=== PATIENT | female | born 1995 | race Caucasian/White ===

== ENCOUNTER → 2021-11-02 | Outpatient (CLI) | payer BC ==
--- NOTE | 2021-11-02 13:31 | RAD ---
EXAM: ULTRASOUND ABDOMEN COMPLETE CLINICAL HISTORY: Abnormal liver function tests COMPARISON: None available. TECHNIQUE: Ultrasound of the upper abdomen was performed. FINDINGS: The pancreas is not well-visualized due to bowel gas. The visualized aorta, IVC within normal limits of dimension. Moderate increased echogenicity in the liver likely hepatic steatosis. Liver length arian sures 16.8 cm. Mild echogenicities identified within the gallbladder likely sludge or gallstones.. Th e common bile duct measures 5.7 mm in transverse dimension. The right kidney measures 10.7 x 5.1 x 4. 5 cm. The left kidney measures 11.6 x 5.3 x 6.7 cm. The spleen measures 9.5 cm in length. IMPRESSION: 1. Echogenicities identified within the gallbladder likely sludge or gallstones. 2. Moderate hepatic steatosis. Electronically signed by: Cresencio Aleln MD (11/02/2021 1:29 PM) [id number]
== END ==
LOC: US 09:53
DX: K76.0 Fatty (change of) liver, not elsewhere classified (principal); R11.2 Nausea with vomiting, unspecified; R94.5 Abnormal results of liver function studies
CPT/HCPCS: 76700